=== PATIENT | female | born 1980 | race African-American/Black ===

== ENCOUNTER 2017-08-01 20:12 | Emergency (ER) | payer OTHER ==
[~2017-08-01] VITALS: Ht 160 cm; Wt 129.3 kg
[~2017-08-01 20:12] MED LIST: ALBUTEROL17 GM INH; BACTRIM DS TABL1 TA2 PO; BACTROBAN15 GM TOP; COZAAR100 MG PO; FLEXERIL10 MG PO; IBUPROFEN800 MG PO; IRON1 TAB PO; METOPROLOL SUCC25 MG PO; MOTRIN400 M1 PO; MOTRIN600 M2 PO; OMEPRAZOLE10 M1 PO; OMEPRAZOLE20 M1 PO; PRENATAL1 TA1 PO; PROTONIX PO; VOLTAREN50 MG PO; VOLTAREN75 MG PO; ZANTAC150 MG PO
[2017-08-01 21:51] LABS: URINE SOURCE CLEAN CATCH
[2017-08-01 21:53] LABS: URINE APPEARANCE HAZY; URINE BILIRUBIN NEG (NEG); URINE BLOOD 3+ (NEG); URINE COLOR YELLOW; URINE GLUCOSE NEG (NORM); URINE KETONE NEG (NEG); URINE LEUKOCYTE ESTERASE TRACE (NEG); URINE NITRATE NEG (NEG); URINE PROTEIN TRACE (NEG); URINE SPECIFIC GRAVITY <=1.005 (1.003-1.035); URINE UROBILINOGEN 0.2 MG/DL (NORM)
[2017-08-01 21:55] LABS: MICRO INDICATED? YES
[2017-08-01 21:56] LABS: CULTURE INDICATED? YES; URINE BACTERIA 1+ (NEG); URINE MUCUS PRESENT; URINE SQUAMOUS EPITHELIAL CELL FEW /[HPF]; URINE TRANSITIONAL EPI CELLS FEW /[HPF]
[2017-08-01 21:57] LABS: URINE AMORPHOUS SEDIMENT AMORP URATES
== END 2017-08-01 22:14 | disposition home or self-care (01) ==
LOC: SED 20:12
PROVIDERS: Student in an Organized Health Care Education/Training Program
DX: T83.098A Other mechanical complication of other urinary catheter, initial encounter (principal); I10 Essential (primary) hypertension; F41.9 Anxiety disorder, unspecified; K21.9 Gastro-esophageal reflux disease without esophagitis; Z91.041 Radiographic dye allergy status; Z79.899 Other long term (current) drug therapy
CPT/HCPCS: 51702; 81003; 87086; 99283